=== PATIENT | female | born 1965 | race Hispanic/Latino ===

== ENCOUNTER 2017-02-15 11:44 | Day surgery (SDC) | payer MEDICAID ==
[2017-02-12 13:35] VITALS: BMI 28.0
[2017-02-15] MEDS ORDERED: Lidocaine 2% Inj (20ml) ONE (13:18)
[2017-02-15] MEDS ORDERED: Propofol 10 mg/ml Inj (20 ML) ONE (13:18)
[2017-02-15] MEDS ORDERED: Sodium Chloride 0.9% 1,000 ML IV SCH (13:45)
[2017-02-15 14:14] VITALS: RESP 18; O2SAT 99
[2017-02-15 14:50] VITALS: BP 137/87; PULSE 64; TEMP 98.4
== END 2017-02-15 15:10 | disposition home or self-care (01) ==
LOC: ENDO 11:44
PROVIDERS: ATTEND Internal Medicine
DX: Z12.11 Encounter for screening for malignant neoplasm of colon (principal); K57.30 Diverticulosis of large intestine without perforation or abscess without bleeding; K64.8 Other hemorrhoids
CPT/HCPCS: 45378; 84703; J2704; J7040